=== PATIENT | female | born 1940 | race Hispanic/Latino ===

== ENCOUNTER 2018-01-02 11:48 | Inpatient (IN) | payer MEDICARE, MEDICAID ==
[~2018-01-02] VITALS: Ht 154.9 cm; Wt 61.3 kg
[~2018-01-02 11:48] MED LIST: AUGMENTIN875TAB PO; NO; ULTRAM50 MG OR
--- NOTE | 2018-01-02 12:05 | NUR ---
WHEELCHAIR TO ROOM 14, TO BED
--- NOTE | 2018-01-02 12:34 | NUR ---
FAMILY STATES THEY PICKED PT UP FROM [facility] SHE WAS HAVING HEALTH PROBLEMS AND BROUGHT HER HERE. PT C/O WEAKNESS TO BILATERAL LEGS x3 MONTHS & PAIN IN MIDLINE UPPER BACK x2 WEEKS. PT HAS FULL ROM TO LEGS & LIMITED ROM TO ARMS. PT IS HARD OF HEARING. DISCOLORATION TO BILATERAL LOWER LEGS. HX OF LEFT HIP FX SURGERY & SHORTENING. BREATHING IS EVEN/UNLABORED, LUNG SOUNDS CLEAR. STRONG/EQUAL PULSES TO ALL EXTREMETIES. EYES PERRLA @3.
--- NOTE | 2018-01-02 13:22 | NUR ---
PT ASSISTED ONTO A BEDPAN.
--- NOTE | 2018-01-02 13:51 | NUR ---
UNABLE TO ESTABLISH AN IV. LAB @BEDSIDE FOR COLLECTION.
[2018-01-02 14:12] LABS: URINE BILIRUBIN - DIPSTICK NEGATIVE (NEGATIVE); URINE BLOOD DIPSTICK NEGATIVE (NEGATIVE); URINE COLOR YELLOW; URINE GLUCOSE - DIPSTICK NEGATIVE (NEGATIVE); URINE KETONE NEGATIVE (NEGATIVE); URINE NITRITE - DIPSTICK NEGATIVE (Negative); URINE PROTEIN - DIPSTICK NEGATIVE (NEG-TRACE); URINE SPECIFIC GRAVITY <=1.005; URINE UROBILINOGEN - DIPSTICK 0.2 E.U./dL (0.2)
[2018-01-02 14:13] LABS: HEMATOCRIT 41.9 % (37.0-47.0); HEMOGLOBIN 14.2 g/dl (12.0-16.0); IMMATURE GRANULOCYTES 0.2 % (0.0-1.0); MEAN CELL VOLUME 93.3 fL CALC (80.0-100.0); MEAN CORPUSCULAR HGB 31.6 pG CALC (26.0-32.0); MEAN CORPUSCULAR HGB CONC 33.9 g/L CALC (32.0-36.0); NEUT# 2.45 thou/uL (2.00-7.15); RED BLOOD COUNT 4.49 mill/uL (4.20-5.60); RED CELL DISTRI WIDTH 14.3 % (11.5-15.5)
[2018-01-02 14:15] LABS: URINE CLARITY SL CLOUDY; URINE LEUK ESTERASE SMALL (NEGATIVE)
[2018-01-02 14:17] LABS: URINE EPITHELIAL CELLS FEW EPI/hpf (0-FEW)
[2018-01-02 14:18] LABS: URINE BACTERIA FEW hpf
[2018-01-02 14:21] LABS: ALBUMIN 3.4 g/dL (3.2-5.0); ALKALINE PHOSPHATASE 88 u/l (38-126); ANION GAP 8 (6-22 (CALC)); BILIRUBIN, TOTAL 0.5 mg/dL (0.0-1.4); BUN 7 mg/dL (8-23); BUN/CREATININE RATIO 22 (12-20 (CALC)); CARBON DIOXIDE 30 mmol/l (22-30); CHLORIDE 106 mmol/l (95-108); CPK 1375 u/l (30-165); CREATININE 0.3 mg/dL (0.5-1.0); GFR > 60 ML/MIN (>=60 (CALC)); GFR FOR AFR.AMER. > 60 ML/MIN (>=60 (CALC)); POTASSIUM 3.4 mmol/l (3.5-5.1); SGPT/ALT 105 u/l (11-66); SODIUM 140 mmol/l (137-146); TOTAL PROTEIN 7.5 g/dL (6.3-8.2)
[2018-01-02 14:22] LABS: SGOT/AST 184 u/l (9-36)
[2018-01-02] MEDS ORDERED: METFORMIN500 MG PO (14:50)
[2018-01-02] MEDS ORDERED: VENASTAT300 MG PO (14:51)
[2018-01-02] MEDS ORDERED: PSYLLIUM PO (14:52)
[2018-01-02 14:53] LABS: TSH, 3RD GENERATION 1.13 uIU/mL (0.47 - 4.68)
--- NOTE | 2018-01-02 14:57 | NUR ---
ASSSITED PT ONTO BEDPAN.
--- NOTE | 2018-01-02 15:15 | NUR ---
RADIOLOGY GAVE PT CONTRAST DRINKS.
--- NOTE | 2018-01-02 15:53 | NUR ---
PT LAYING IN BED. 2 VISITORS @BEDSIDE. PENDING CONTRAST COMPLETION FOR CATSCAN. CALLBELL W/IN REACH.
--- NOTE | 2018-01-02 16:37 | NUR ---
PT ASSISTED TO BEDPAN.
--- NOTE | 2018-01-02 17:00 | NUR ---
INTERPRETOR USED TO ANSWER PTS/FAMILYS QUESTIONS ABOUT TEST RESULTS & POC. PT/FAMILY AWARE THAT PT WILL LIKELY BE ADMITTED ONCE ALL TESTS ARE BACK.
--- NOTE | 2018-01-02 18:08 | NUR ---
PT REQUEST TO BE ON BEDPAN FOR AWHILE. C/O ABD CRAMPS AFTER CT. EDP AWARE.
--- NOTE | 2018-01-02 18:18 | NUR ---
FAMILY CONSTANTLY ON CALLBELL (5 TIMES IN 2 MINS), WHEN ENTERED ROOM, FAMILY LAUGHING LIKE CALLBELL IS A GAME. PT/FAMILY ADVISED WHEN/HOW TO USE CALLBELL.
--- NOTE | 2018-01-02 18:41 | NUR ---
PT CLEANED UP AFTER A VERY LARGE BOWEL MOVEMENT. LINENS & GOWN CHANGED. FAMILY WATCHED. INITIAL C/O STATED PT COULDNT MOVE HER LEGS BC THEY WERE TOO WEAK. GRANDDAUGHTER/EMPLOYEE NOW STATES PT GETS UP TO BATHROOM AT HOME WITH ASSISTANCE. 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 FAMILY STATES PT HAS NOT HAD A STOOL FOR 2-3 WEEKS.
--- NOTE | 2018-01-02 18:54 | NUR ---
RECVING RN STATES SHE WILL TAKE REPORT AT BEDSIDE.
--- NOTE | 2018-01-02 19:31 | NUR ---
Admission Note Report Given to: GLORIA Transported by: Wheelchair X Stretcher Transported with: X Nurse Transporter X Patent IV O2 X Production Proofreader WITH IVF.
[2018-01-02 19:42] VITALS: BP 119/67
--- NOTE | 2018-01-02 19:42 | NUR ---
PATYIENT ARRIVED TO THE FLOOR IN STABLE CONDITION VIA STRETCHER AND ACCOMPANIED BY ED NURSE AND FAMILY. PT SETTLED TO BED. ORIENT PT TO ROOM CALL SYSTEM THROUGH ON SITE COORDINATOR. BED IN LOW POSITION AND CALL LIGHT IN REACH.
--- NOTE | 2018-01-02 19:47 | NUR ---
PT TRANSFERED TO [facility] BY STRETCHER WITH TELE & IVF IN STABLE CONDITION. PT PULLED SELF OUT OF BED AND AMBULATED WITH CANE TO BATHROOM. 2 FAMILY MEMBERS @BEDSIDE.
[2018-01-02 23:49] VITALS: BP 130/67
--- NOTE | 2018-01-03 | NUR ---
PT RESTING QUIETLY IN BED WITH EYES CLOSED AND APPEARS TO BE ASLEEP. SPOUSE IN ROOM WITH. NO APPARENT ACUTE DISTRESS NOTED. WILL CONTINUE TO MONITOR.
--- NOTE | 2018-01-03 04:00 | NUR ---
PATIENT SLEPT WELL DURING THE NIGHT. NO VOICED COMPALINTS. NO APPARENT ACUTE CHANGES NOTED IN PT'S CONDITION.
[2018-01-03 04:18] VITALS: BP 122/62
[2018-01-03 05:57] LABS: HEMATOCRIT 39.4 % (37.0-47.0); HEMOGLOBIN 13.1 g/dl (12.0-16.0); MEAN CORPUSCULAR HGB 31.3 pG CALC (26.0-32.0); MEAN CORPUSCULAR HGB CONC 33.2 g/L CALC (32.0-36.0); RED BLOOD COUNT 4.19 mill/uL (4.20-5.60); RED CELL DISTRI WIDTH 14.6 % (11.5-15.5)
[2018-01-03 06:12] LABS: ALKALINE PHOSPHATASE 70 u/l (38-126); ANION GAP 8 (6-22 (CALC)); BILIRUBIN, TOTAL 0.4 mg/dL (0.0-1.4); BUN 5 mg/dL (8-23); BUN/CREATININE RATIO 17 (12-20 (CALC)); CARBON DIOXIDE 27 mmol/l (22-30); CHLORIDE 109 mmol/l (95-108); CREATININE 0.3 mg/dL (0.5-1.0); GFR > 60 ML/MIN (>=60 (CALC)); GFR FOR AFR.AMER. > 60 ML/MIN (>=60 (CALC)); MAGNESIUM 1.7 mg/dL (1.6-2.3); POTASSIUM 3.5 mmol/l (3.5-5.1); SGOT/AST 147 u/l (9-36); SGPT/ALT 86 u/l (11-66); SODIUM 140 mmol/l (137-146)
[2018-01-03 06:26] LABS: ALBUMIN 2.6 g/dL (3.2-5.0)
--- NOTE | 2018-01-03 07:00 | NUR ---
BEDSIDE REPORT RECEIVED BY KEANU. PT IS SLEEPING IN BED WITH NO S/S OF DISTRESS NOTED. FAMILY MEMBERS IN ROOM. CALL LIGHT IN REACH.
[2018-01-03 07:58] VITALS: BP 100/54
--- NOTE | 2018-01-03 08:02 | NUR ---
ASSESSMENT DONE. TELE IN PLACE. RESPS EVEN AND UNLABORED. PT DENIES PAIN AT THIS TIME. NS 150ML/HR INFUSING WELL. SAFETY PRECAUTIONS REINFORCED AND CALLL LIGHT IN REACH. FAMILY MEMBERS IN ROOM.
--- NOTE | 2018-01-03 11:29 | NUR ---
MEDICATED PT WITH TORADOL SEE EMAR. PT IS SITTING IN WHEELCHAIR AND STATED THAT SHE WANTED TO STAY IN WHEELCHAIR AND EAT HER LUNCH THERE. PT DENIES ANY OTHER NEEDS AT THIS TIME. CALL LIGHT IN REACH. FAMILY MEMBERS IN ROOM.
[2018-01-03 11:47] VITALS: BP 112/59
[2018-01-03 13:29] LABS: C-REACTIVE PROTEIN 0.9 mg/dL (0-0.9)
[2018-01-03 15:25] VITALS: BP 128/68
--- NOTE | 2018-01-03 16:00 | NUR ---
PT IS RESTING IN BED WITH NO S/S OF DISTRESS NOTED. PT DENIES NEEDS AT THIS TIME. FAMILY MEMBERS IN ROOM AND CALL LIGHT IN REACH.
--- NOTE | 2018-01-03 19:18 | NUR ---
PT.IS SITTING ON SIDE OF THE BED W/FAMILY AT BEDSIDE. DENIES PAIN/N/V. NO S/S OF DISTRESS. WILL FOLLOW-UP WITH ASSESSMENT AND MEDICATIONS ORDERED. CALL LIGHT AT BEDSIDE AND PT INSTRUCTED TO CALL IF NEEDS ARISE.
[2018-01-03 20:45] VITALS: BP 124/72
--- NOTE | 2018-01-03 21:00 | NUR ---
PT. FAMILY AT BEDSIDE. PT DENIES ANY NEEDS AT THIS TIME. PT ASSESSED, LUNG SOUNDS ARE CLEAR, SKIN ON ANKLES DARKENED AND FLAKY. ABD SOFT NON-TENDER. NEURO INTACT. DENIES PAIN AT THIS TIME. CALL LIGHT AND FAMILY AT BEDSIDE.
[2018-01-04 00:03] VITALS: BP 123/70
--- NOTE | 2018-01-04 04:15 | NUR ---
V/S HAVE BEEN ASSESSED. NEURO'S INTACT, PT WAS SLEEPING UPON US ENTERING ROOM. FAMILY MEMBER AT BEDSIDE SLEEPING. DENIES ANY NEEDS AT THIS TIME. CALL LIGHT AT SIDE.
[2018-01-04 04:42] VITALS: BP 105/57
[2018-01-04 06:10] LABS: HEMATOCRIT 39.2 % (37.0-47.0); HEMOGLOBIN 13.2 g/dl (12.0-16.0); IMMATURE GRANULOCYTES 0.5 % (0.0-1.0); MEAN CELL VOLUME 94.2 fL CALC (80.0-100.0); MEAN CORPUSCULAR HGB 31.7 pG CALC (26.0-32.0); MEAN CORPUSCULAR HGB CONC 33.7 g/L CALC (32.0-36.0); NEUT# 2.26 thou/uL (2.00-7.15); RED BLOOD COUNT 4.16 mill/uL (4.20-5.60); RED CELL DISTRI WIDTH 14.5 % (11.5-15.5)
[2018-01-04 06:23] LABS: ANION GAP 10 (6-22 (CALC)); BUN 10 mg/dL (8-23); BUN/CREATININE RATIO 32 (12-20 (CALC)); CARBON DIOXIDE 24 mmol/l (22-30); CHLORIDE 108 mmol/l (95-108); CREATININE 0.3 mg/dL (0.5-1.0); GFR > 60 ML/MIN (>=60 (CALC)); GFR FOR AFR.AMER. > 60 ML/MIN (>=60 (CALC)); MAGNESIUM 1.9 mg/dL (1.6-2.3); POTASSIUM 3.8 mmol/l (3.5-5.1); SODIUM 139 mmol/l (137-146)
[2018-01-04 07:22] VITALS: BP 105/63
--- NOTE | 2018-01-04 09:00 | NUR ---
PT SEEN AWAKE, ALERT, WEAK. SHE IS UNABLE TO SIT HERSELF UP, ASSISTS IN LIFTING HER. PT COMPLAINS OF WEAKNESS.
[2018-01-04 11:02] VITALS: BP 140/68
--- NOTE | 2018-01-04 12:00 | NUR ---
PT SEEN BY DR DUBOSE AND ZOHAIB THIS AM, SEEN TO BE QUITE WEAK WITHOUT APPARENT CAUSE. PT PROVIDED SUPPOSITORY PER NO BM IN 3 DAYS. FAMILY AT BEDSIDE.
[2018-01-04 15:12] VITALS: BP 152/71
--- NOTE | 2018-01-04 16:00 | NUR ---
PT PROVIDED MEDS ORDERED FOR CONSTIPATION. PT HAS HAD A SHOWER. FAMILY REMAINS AT BEDSIDE.
[2018-01-04 19:00] VITALS: BP 128/69
--- NOTE | 2018-01-04 19:00 | NUR ---
RECEIVED CHANGE OF SHIFT REPORT FROM HELENE DELGADO. PT ALERT AND ORIENTED AND LYING IN BED WITH FAMILY AT BEDSIDE. DENIES PAIN AND DISCOMFORT. NO APPARENT ACUTE DISTRESS NOTED. WILL CONTINUE TO MONITOR.
--- NOTE | 2018-01-05 | NUR ---
PT RESTING COMFORTABLY AT THIS TIME
[2018-01-05 00:25] VITALS: BP 131/66
[2018-01-05 03:48] VITALS: BP 110/59
--- NOTE | 2018-01-05 04:00 | NUR ---
PT SLEPT WELL DURING THE NIGHT. NO APPARENT ACUTE CHANGES NOTED IN PT'S CONDITION.
[2018-01-05 05:12] LABS: HEMATOCRIT 41.1 % (37.0-47.0); HEMOGLOBIN 13.7 g/dl (12.0-16.0); MEAN CELL VOLUME 93.6 fL CALC (80.0-100.0); MEAN CORPUSCULAR HGB 31.2 pG CALC (26.0-32.0); MEAN CORPUSCULAR HGB CONC 33.3 g/L CALC (32.0-36.0); RED BLOOD COUNT 4.39 mill/uL (4.20-5.60); RED CELL DISTRI WIDTH 14.2 % (11.5-15.5)
[2018-01-05 05:44] LABS: ANION GAP 10 (6-22 (CALC)); BUN 10 mg/dL (8-23); BUN/CREATININE RATIO 36 (12-20 (CALC)); CARBON DIOXIDE 23 mmol/l (22-30); CHLORIDE 108 mmol/l (95-108); CPK 985 u/l (30-165); CREATININE 0.3 mg/dL (0.5-1.0); GFR > 60 ML/MIN (>=60 (CALC)); GFR FOR AFR.AMER. > 60 ML/MIN (>=60 (CALC)); SGOT/AST 198 u/l (9-36); SGPT/ALT 145 u/l (11-66); SODIUM 137 mmol/l (137-146)
--- NOTE | 2018-01-05 07:00 | NUR ---
SHIFT CHANGE REPORT FROM DIEGO CASTRO AWAKE AND ALERT, C/O WEAKNESS, ASSISTED TO BSC THEN TO RECLINER FOR MEAL, DENIES PAIN, RESEARCH GEOLOGIST (ARSLAN) USED FOR COMMUNICATION, SPOUSE IN ROOM, CALL HAYNES IN REACH.
--- NOTE | 2018-01-05 07:33 | NUR ---
SHIFT CHANGE REPORT FROM GLORIA, PT AWAKE AND ALERT. BRINE SUPERVISOR REPORTED HR @ 42-45 AT THIS TIME, PT DENIES DISCOMFORT AND DOES NOT SEEP TO BE IN ANY DISTRESS, ANSWERED QUESTIONS APPROPRIATELY WITH CASE PACKER AND SEALER PRESENT, WILL CONTINUE TO MONITOR, CALL HAYNES IN REACH.
[2018-01-05 07:54] VITALS: BP 136/58
--- NOTE | 2018-01-05 12:00 | NUR ---
SITTING UP AT BEDSIDE HAVING MEAL, ALL NEEDS ADDRESSED, CALL HAYNES IN REACH AND FAMILY IN ROOM.
--- NOTE | 2018-01-05 15:10 | NUR ---
RESTING QUIETLY IN BED AT THIS TIME, HEIME FROM ED (TELE MONITOR) JUST CALLED TO INFORM OF HR @ 42, PT SUDDENLY INCREASED TO 52BPM AT THIS TIME, WILL CONTINUE TO MONITOR.
--- NOTE | 2018-01-05 19:00 | NUR ---
RECEIVED CHANGE OF SHIFT REPORT FROM HELENE GARCIA. PT ALERT AND ORIENTED AND SITTING UP AT THE BEDSIDE WITH FAMILY IN ROOM. DENIES DISCOMFORT. NO APPARENT ACUTE DISTRESS NOTED AT THIS TIME. WILL CONTINUE TO MONITOR.
[2018-01-05 19:07] VITALS: BP 138/70
--- NOTE | 2018-01-06 | NUR ---
RESTING QUIETLY. NO APPARENT ACUTE DISTRESS NOTED.
[2018-01-06 00:22] VITALS: BP 109/57
[2018-01-06 04:00] VITALS: BP 133/64
--- NOTE | 2018-01-06 04:00 | NUR ---
PT RESTED WELL DURING THE NIGHT. NO APPARENT ACUTE CHANGES NOTED IN PT'S CONDITION.
--- NOTE | 2018-01-06 05:38 | NUR ---
PET TECHNOLOGIST REPORTS PT'S HR OF 38. ON ASSESSMENT APICAL HEART RATE IS 51 BPM.
--- NOTE | 2018-01-06 05:59 | NUR ---
ASSISTED PATIENT OOB TO CHAIR. CAMILO BEGUM.
[2018-01-06 08:00] VITALS: BP 148/78
--- NOTE | 2018-01-06 10:39 | NUR ---
PT AWAKE, ALERT, CONTINUES WEAK. AT BEDSIDE. NO DISTRESS NOTED, LUNGS CLEAR. PT WITH SMALL HARD BM YESTERDAY. SKIN INTACT. ANTICIPATE MRI TODAY.
[2018-01-06 11:05] VITALS: BP 149/73
[2018-01-06 11:13] LABS: ALBUMIN 2.9 g/dL (3.2-5.0); ALKALINE PHOSPHATASE 93 u/l (38-126); ANION GAP 10 (6-22 (CALC)); BILIRUBIN, TOTAL 0.3 mg/dL (0.0-1.4); BUN 13 mg/dL (8-23); BUN/CREATININE RATIO 36 (12-20 (CALC)); CARBON DIOXIDE 22 mmol/l (22-30); CHLORIDE 109 mmol/l (95-108); CREATININE 0.4 mg/dL (0.5-1.0); GFR > 60 ML/MIN (>=60 (CALC)); GFR FOR AFR.AMER. > 60 ML/MIN (>=60 (CALC)); POTASSIUM 3.9 mmol/l (3.5-5.1); SGOT/AST 167 u/l (9-36); SGPT/ALT 144 u/l (11-66); SODIUM 137 mmol/l (137-146); TOTAL PROTEIN 6.3 g/dL (6.3-8.2)
--- NOTE | 2018-01-06 11:48 | NUR ---
PT SITTING IN CHAIR AT BEDSIDE, FAMILY AT BEDSIDE. INSULIN 3 UNITS GIVEN FOR GLUCOSE OF 273. OFFERS NOT COMPLAINTS AT THIS TIME.
--- NOTE | 2018-01-06 12:53 | NUR ---
PT WAS TAKEN TO MRI THIS AM, UNABLE TO DO. PT INSISTED THAT SHE NEEDED WATER, DID NOT WANT TO BE AWAY FROM HER , AND ON. PHYSICIAN AWARE. FAMILY MEMBERS ATTEMPT TO PERSUADE. PT WEAK BUT NOT IN DISTRESS.
[2018-01-06] MEDS ORDERED: KEFLEX500 MG PO (13:22)
[2018-01-06] MEDS ORDERED: JANUVIA100 MG PO (13:22)
[2018-01-06] MEDS ORDERED: SURFAK240 MG/CAP PO (13:22)
[2018-01-06] MEDS ORDERED: PREDNISONE20 MG PO (13:22)
--- NOTE | 2018-01-06 14:25 | NUR ---
PT VERBALIZES UNDERSTANDING OF DC INSTRUCTIONS, ASSISTED WITH TRANSLATION BY ARSLAN. PT LEAVES BY WHEELCHAIR. FAMILY ACCOMPANIED HER. CONDITION STABLE.
== END 2018-01-06 14:29 | disposition home health service (06) | DRG 556 ==
LOC: ED 11:48 → ED-I 18:08 → ED 18:46 → MS2 18:47
PROVIDERS: Emergency Medicine; Nurse Practitioner Family; ADMIT Internal Medicine; ATTEND Internal Medicine
DX: M60.9 Myositis, unspecified (principal); N39.0 Urinary tract infection, site not specified; K59.00 Constipation, unspecified; E11.9 Type 2 diabetes mellitus without complications; I87.2 Venous insufficiency (chronic) (peripheral); R74.8 Abnormal levels of other serum enzymes; R00.1 Bradycardia, unspecified; B96.20 Unspecified Escherichia coli [E. coli] as the cause of diseases classified elsewhere; Z79.84 Long term (current) use of oral hypoglycemic drugs; Z91.19 Patient's noncompliance with other medical treatment and regimen
CPT/HCPCS: G0378; Q9967

== ENCOUNTER 2021-05-21 15:31 | Emergency (ER) | payer MEDICARE, MEDICAID ==
[~2021-05-21] VITALS: Ht 154.9 cm; Wt 62.0 kg
[~2021-05-21 15:31] MED LIST changes: +JANUVIA100 MG PO; +KEFLEX500 MG PO; +METFORMIN500 MG PO; +PREDNISONE20 MG PO; +PSYLLIUM PO; +SURFAK240 MG/CAP PO; +VENASTAT300 MG PO
[2021-05-21] MEDS ORDERED: NAPROXEN250 MG PO (16:00)
[2021-05-21 16:46] LABS: IMMATURE GRANULOCYTES 0.4 % (0.0-5.0); MEAN CELL VOLUME 88.5 fL CALC (80.0-100.0); MEAN CORPUSCULAR HGB 30.3 pG CALC (26.0-32.0); MEAN CORPUSCULAR HGB CONC 34.2 g/dL CAL (32.0-36.0); NEUT# 3.17 thou/uL (2.00-7.15); RED BLOOD COUNT 5.41 mill/uL (4.20-5.60); RED CELL DISTRI WIDTH 12.9 % (11.5-15.5)
[2021-05-21 16:50] LABS: HEMATOCRIT 47.9 % (37.0-47.0); HEMOGLOBIN 16.4 g/dl (12.0-16.0)
[2021-05-21 16:59] LABS: ALBUMIN 3.8 g/dL (3.2-5.0); ALKALINE PHOSPHATASE 117 u/l (38-126); AMYLASE 47 u/l (30-110); BUN 14 mg/dL (8-23); BUN/CREATININE RATIO 34 (12-20 (CALC)); CARBON DIOXIDE 25 mmol/l (22-30); CREATININE 0.4 mg/dL (0.5-1.0); GFR > 60 ML/MIN (>=60 (CALC)); GFR FOR AFR.AMER. > 60 ML/MIN (>=60 (CALC)); LIPASE 114 u/l (23-300); POTASSIUM 4.6 mmol/l (3.5-5.1); SGOT/AST 26 u/l (9-36); TOTAL PROTEIN 8.3 g/dL (6.3-8.2)
[2021-05-21 17:06] LABS: ANION GAP 16 (6-22 (CALC)); BILIRUBIN, TOTAL 0.6 mg/dL (0.0-1.4); CHLORIDE 90 mmol/l (95-108); SODIUM 126 mmol/l (137-146)
[2021-05-21 17:11] LABS: MYOGLOBIN 18 ng/mL (0 - 62)
[2021-05-21 17:44] LABS: URINE BILIRUBIN - DIPSTICK NEGATIVE (NEGATIVE); URINE BLOOD DIPSTICK NEGATIVE (NEGATIVE); URINE COLOR YELLOW; URINE GLUCOSE - DIPSTICK >=1000 mg/dL (NEGATIVE); URINE KETONE TRACE mg/dL (NEGATIVE); URINE LEUK ESTERASE NEGATIVE (NEGATIVE); URINE PROTEIN - DIPSTICK NEGATIVE (NEG-TRACE); URINE UROBILINOGEN - DIPSTICK 0.2 E.U./dL (0.2)
[2021-05-21 17:45] LABS: URINE NITRITE - DIPSTICK NEGATIVE (Negative)
[2021-05-21] MEDS ORDERED: CITRATE OF MEGNESIA PO (18:06)
[2021-05-21] MEDS ORDERED: MIRALAX17 GM PO (18:06)
[2021-05-21] MEDS ORDERED: METFORMIN HCL500 M1 PO (18:06)
[2021-05-21 18:35] VITALS: BP 169/91
== END 2021-05-21 18:35 | disposition home or self-care (01) ==
LOC: ED 15:31
PROVIDERS: Family Medicine
DX: K59.00 Constipation, unspecified (principal); E11.9 Type 2 diabetes mellitus without complications; T38.3X6A Underdosing of insulin and oral hypoglycemic [antidiabetic] drugs, initial encounter; Z91.128 Patient's intentional underdosing of medication regimen for other reason
CPT/HCPCS: S0164

== ENCOUNTER 2021-10-27 21:19 | Emergency (ER) | payer MEDICARE, MEDICAID ==
[~2021-10-27] VITALS: Ht 154.9 cm; Wt 66.0 kg
[~2021-10-27 21:19] MED LIST changes: +CITRATE OF MEGNESIA PO; +METFORMIN HCL500 M1 PO; +MIRALAX17 GM PO; +NAPROXEN250 MG PO
[2021-10-27 21:33] VITALS: BP 127/69
[2021-10-27 21:45] VITALS: BP 122/69
[2021-10-27 21:49] LABS: HEMATOCRIT 40.9 % (37.0-47.0); HEMOGLOBIN 13.5 g/dl (12.0-16.0); IMMATURE GRANULOCYTES 0.6 % (0.0-5.0); MEAN CELL VOLUME 85.7 fL CALC (80.0-100.0); MEAN CORPUSCULAR HGB 28.3 pG CALC (26.0-32.0); NEUT# 4.25 thou/uL (2.00-7.15); RED BLOOD COUNT 4.77 mill/uL (4.20-5.60); RED CELL DISTRI WIDTH 14.3 % (11.5-15.5)
[2021-10-27 21:55] LABS: ALBUMIN 3.4 g/dL (3.2-5.0); ALKALINE PHOSPHATASE 102 u/l (38-126); ANION GAP 13 (6-22 (CALC)); BILIRUBIN, TOTAL 0.4 mg/dL (0.0-1.4); BUN 12 mg/dL (8-23); BUN/CREATININE RATIO 27 (12-20 (CALC)); CARBON DIOXIDE 25 mmol/l (22-30); CHLORIDE 97 mmol/l (95-108); CREATININE 0.4 mg/dL (0.5-1.0); GFR > 60 ML/MIN (>=60 (CALC)); GFR FOR AFR.AMER. > 60 ML/MIN (>=60 (CALC)); SGOT/AST 33 u/l (9-36); SODIUM 131 mmol/l (137-146); TOTAL PROTEIN 7.8 g/dL (6.3-8.2)
[2021-10-27 21:56] LABS: POTASSIUM 3.6 mmol/l (3.5-5.1)
[2021-10-27 22:00] VITALS: BP 110/67
[2021-10-27 22:07] LABS: MYOGLOBIN 19 ng/mL (0 - 62)
[2021-10-27 22:15] VITALS: BP 111/68
[2021-10-27 22:30] VITALS: BP 110/67
[2021-10-27 22:45] VITALS: BP 106/67
[2021-10-27] MEDS ORDERED: TORADOL PO (23:49)
[2021-10-28 00:29] LABS: URINE BILIRUBIN - DIPSTICK NEGATIVE (NEGATIVE); URINE BLOOD DIPSTICK NEGATIVE (NEGATIVE); URINE COLOR YELLOW; URINE GLUCOSE - DIPSTICK >=1000 mg/dL (NEGATIVE); URINE KETONE TRACE mg/dL (NEGATIVE); URINE LEUK ESTERASE NEGATIVE (NEGATIVE); URINE NITRITE - DIPSTICK POSITIVE (Negative); URINE PH 7.5 (4.5-8.0); URINE PROTEIN - DIPSTICK NEGATIVE (NEG-TRACE); URINE SPECIFIC GRAVITY <=1.005; URINE UROBILINOGEN - DIPSTICK 0.2 E.U./dL (0.2)
[2021-10-28 00:34] LABS: URINE BACTERIA MANY hpf; URINE SQUAMOUS EPITHELIAL CELL FEW EPI/hpf (0-FEW)
[2021-10-28] MEDS ORDERED: BACTRIM DS1 TAB PO (00:47)
[2021-10-28 00:56] VITALS: BP 106/67
== END 2021-10-28 01:23 | disposition home or self-care (01) ==
LOC: ED 21:19
PROVIDERS: Family Medicine
DX: R07.89 Other chest pain (principal); N39.0 Urinary tract infection, site not specified; B96.20 Unspecified Escherichia coli [E. coli] as the cause of diseases classified elsewhere; E11.9 Type 2 diabetes mellitus without complications; Z16.12 Extended spectrum beta lactamase (ESBL) resistance; Z79.84 Long term (current) use of oral hypoglycemic drugs